=== PATIENT | male | born 1985 | race African-American/Black ===

== ENCOUNTER 2019-02-22 23:50 | Emergency (ER) | payer OTHER, SELFPAY ==
[2019-02-23 00:02] VITALS: BP 115/82; PULSE 123; RESP 17; TEMP 37.2; O2SAT 98; BMI 27.3
[2019-02-23 00:10] VITALS: TEMP 38.2
[2019-02-23 00:31] LABS: Influenza A and B by PCR Rapid Negative (Negative)
--- NOTE | 2019-02-23 01:11 | ED.URI ---
HPI - URI/Sore Throat General Chief Complaint: Upper Respiratory Symptoms Stated Complaint: Throat Pain Time Seen by Provider: 02/23/19 01:11 Source: patient Mode of arrival: ambulatory Limitations: no limitations History of Present Illness HPI Narrative: The patient has been ill for about 4 days with respiratory symptoms. He complains of a sore throat, with fever. He has no ear pain or sinus pressure. He has minimal cough. He is a nonsmoker. He has no history of asthma. His ongoing sore throat and fever after 4 days. He has pain with swallowing. He is unable to sleep because the discomfort. He has no abdominal pain, nausea vomiting. He has normal urine output. He is healthy, no chronic medical problems. Related Data Previous Rx's Medication Instructions Recorded amoxicillin 500 mg PO TID #26 cap 02/23/19 Allergies Allergy/AdvReac Type Severity Reaction Status Date / Time No Known Drug Allergies Allergy Verified 02/23/19 00:02 Review of Systems Review of Systems ROS Unobtainable: All systems reviewed & are unremarkable except as noted in HPI and below Constitutional Denies chills, Denies fever(s), Reports headache(s), Denies lethargy and Denies weakness Eyes Denies eye discharge and Denies irritation ENT Ears, Nose, Mouth, and Throat: Denies change in voice, Denies otalgia, Denies facial pain, Reports headache(s), Reports neck pain and Reports sore throat Cardiovascular Denies chest pain, Denies lightheadedness, Denies dyspnea, Denies dyspnea on exertion and Denies orthopnea Respiratory Reports cough, Denies dyspnea, Denies dyspnea on exertion and Denies wheezing Gastrointestinal Gastrointestinal: Denies abdominal pain, Denies change in bowel habits, Denies diarrhea, Denies nausea and Denies vomiting Musculoskeletal Reports neck pain Integumentary/Breasts Denies erythema and Denies rash Neurologic Reports headache(s) and Denies weakness Allergic/Immunologic Denies wheezing [facility] Medical History (Updated 02/23/19 @ 01:38 by Sebastian Zelaya MD) No active medical problems (Acute) Surgical History No pertinent past surgical history (Acute) Social History Smoking Status: Unknown if ever smoked Social History Smoking Status: Unknown if ever smoked Exam Initial Vital Signs Initial Vital Signs: Vital Signs Temperature 98.9 F 02/23/19 00:02 Pulse Rate 123 H 02/23/19 00:02 Respiratory Rate 17 02/23/19 00:02 Blood Pressure 115/82 02/23/19 00:02 Pulse Oximetry 98 02/23/19 00:02 Const General: cooperative and well developed Nutritional Appearance: well nourished Orientation: alert, awake, oriented x3 and not confused HENOH Head: normocephalic and atraumatic Ears: external ears normal and TM's normal bilaterally Nose: No nasal discharge Face and sinus: sinuses nontender and dry mucous membranes Mouth: moist mucous membranes Teeth and gingiva: dentition normal Throat: uvula midline and abnormal tonsil (Erythema with exudate.) bilaterally Neck Neck: full ROM, no meningeal signs, lymphadenopathy and No tracheal deviation Course Course Narrative: The patient has strep throat. He was started on amoxicillin tonight, and prescribed amoxicillin for a total of 10 days. He is advised you Tylenol or Advil as needed and to stay well hydrated. Orders Ordered: ED Orders 02/23/19 00:05 Influenza A and B by PCR Rapid Stat Discontinued Medications Amoxicillin (Amoxicillin (250 Mg/5 Ml) Prepack) 1 bottle MISC SEEINSTR ONE Stop: 02/23/19 01:29 Last Admin: 02/23/19 01:33 Dose: Not Given Amoxicillin ( Trimox 250mg Prepack) 1 bottle MISC SEEINSTR ONE Stop: 02/23/19 01:34 Last Admin: 02/23/19 01:34 Dose: 1 bottle Ibuprofen (Advil) 800 mg PO NOW ONE Stop: 02/23/19 01:29 Last Admin: 02/23/19 01:31 Dose: 800 mg Vital Signs - 8 hr 02/23/19 00:02 02/23/19 00:10 02/23/19 01:31 Temperature 98.9 F 100.8 F H 100.8 F H Pulse Rate 123 H Respiratory Rate 17 Blood Pressure 115/82 Pulse Oximetry 98 MDM - URI/Sore Throat Lab Data Lab Results 02/23/19 Range/Units 00:05 Influenza A & B (PCR) Negative (Negative) Point of Care Testing Rapid Strep A Positive Discharge Plan Departure Patient Disposition: Home Clinical Impression: Strep throat Instructions: DI for Strep Throat Activity Restrictions/Additional Instructions: Amoxicillin 3 times daily for 10 days. Tylenol 2 tablets every 4 hours as needed for pain and fever. You may also use Advil 3 tablets every 6 hours for pain or fever. Be sure year drinking plenty of fluids and staying well hydrated as we discussed. Return to the ER if obviously worse. Prescriptions: New amoxicillin 500 mg capsule 500 mg PO TID Qty: 26 RF: 0
[2019-02-23 01:31] VITALS: TEMP 38.2
[2019-02-23] MEDS: IBUPROFEN 400 MG TABLET 800 MG PO (01:31)
[2019-02-23] MEDS: AMOXICILLIN 250 MG PREPACK 1 BOTTLE MISC (01:34)
[2019-02-23 01:40] VITALS: PULSE 90; RESP 18; TEMP 37.6; O2SAT 99
== END 2019-02-23 01:40 | disposition home or self-care (01) ==
PROVIDERS: Emergency Provider Emergency Medicine
DX: J02.0 Streptococcal pharyngitis (principal)
CPT/HCPCS: 87400; 87880; 99282; 99283